=== PATIENT | female | born 1950 | race Caucasian/White ===

== ENCOUNTER 2018-03-25 08:43 | Outpatient (CLI) | payer MEDICARE, OTHER | END 2018-03-25 08:44 | disposition home or self-care (01) | LOC: BICMAMMO 08:43 | PROVIDERS: ATTEND Surgery | DX: Z08 Encounter for follow-up examination after completed treatment for malignant neoplasm (principal); Z85.3 Personal history of malignant neoplasm of breast | CPT/HCPCS: 77066; G0279 ==

== ENCOUNTER 2018-07-31 08:29 | Outpatient (CLI) | payer MEDICARE, OTHER ==
--- NOTE | 2018-07-31 10:31 | ULT ---
GALLBLADDER ULTRASOUND: History: Right upper quadrant pain, jaundice. FINDINGS: Real-time imaging of the right upper quadrant was performed. This shows a normal appearing gallbladde r. The technologist reports a negative ultrasound Hawley's sign. The common duct is 3 mm. The liver s hows increased echogenicity and is somewhat diffusely heterogeneous. It measures approximately 15 cm in length. The right kidney is normal in size and not obstructed. The pancreas is obscured. IMPRESSION: Heterogeneous appearance to the liver suggestive of some fatty change. POS: C
== END 2018-07-31 08:30 | disposition home or self-care (01) ==
LOC: ULT 08:29
PROVIDERS: ATTEND Surgery
DX: R10.11 Right upper quadrant pain (principal); R17 Unspecified jaundice
CPT/HCPCS: 76705

== ENCOUNTER 2018-08-14 15:11 | Outpatient (CLI) | payer MEDICARE, OTHER ==
--- NOTE | 2018-08-14 15:48 | BD ---
DEXA BONE DENSITY EXAM: HISTORY: A 68-year-old menopausal female for screening. COMPARISON: 03/24/2017. FINDINGS: Lumbar Spine: BMD (g/cm2) L1 0.854 T-Score: -1.2 L2 0.763 T-Score: -2.4 L3 0.842 T-Score: -2.2 L4 0.804 T-Score: -2.3 L1-L4 0.817 T-Score: -2.1 Femoral Neck: 0.657 T-Score: -1.7 Total Femur: 0.812 T-Score: -1.1 Impression: Osteopenia. This patient has a 10-year WHO fracture risk of a major osteoporotic fracture of 24% and of a hip fracture 4.4%. POS: CET
== END 2018-08-14 15:12 | disposition home or self-care (01) ==
LOC: BICMAMMO 15:11
PROVIDERS: ATTEND Internal Medicine Hematology & Oncology
DX: N95.9 Unspecified menopausal and perimenopausal disorder (principal); C50.512 Malignant neoplasm of lower-outer quadrant of left female breast; M85.80 Other specified disorders of bone density and structure, unspecified site
CPT/HCPCS: 77080

== ENCOUNTER 2018-08-17 12:25 | Outpatient (CLI) | payer MEDICARE, OTHER ==
--- NOTE | 2018-08-17 17:50 | NM ---
HEPATOBILIARY SCAN: Date: 08/17/18 HISTORY: Epigastric pain. RADIOPHARMACEUTICAL: 5.5 mCi technetium-99m mebrofenin injected intravenously. FINDINGS: There is good tracer extraction by the liver with prompt excretion into the biliary tract and small b owel loops, and normal filling of the gallbladder. The calculated gallbladder ejection fraction measures 30% following an oral fatty meal (normal greate r than 33%). IMPRESSION: Findings are consistent with gallbladder dyskinesia/chronic acalculous cholecystitis. POS: [facility]
== END 2018-08-17 12:26 | disposition home or self-care (01) ==
LOC: NM 12:25
PROVIDERS: ATTEND Internal Medicine Gastroenterology
DX: R10.13 Epigastric pain (principal); K76.0 Fatty (change of) liver, not elsewhere classified; E80.4 Gilbert syndrome
CPT/HCPCS: 78227; A9537

== ENCOUNTER 2018-08-21 08:39 | Outpatient (CLI) | payer MEDICARE, OTHER ==
[2018-08-21 09:19] LABS: Estimated GFR-MDRD - POC Greater than 90
--- NOTE | 2018-08-21 11:24 | CT ---
CONTRAST ENHANCED CT IMAGES ABDOMEN AND PELVIS: HISTORY: Abdominal pain, nausea, intermittent jaundice. FINDINGS: Contrast-enhanced CT images of the abdomen and pelvis obtained after administration of IV and oral co ntrast. The lung bases are unremarkable. There are surgical randi seen along the diaphragm. Ther e is a large sliding as well as paraesophageal hiatal hernia seen. The duodenum is unremarkable. The liver and spleen are unremarkable. The gallbladder is unremarkabl e. No evidence of adrenal masses or lesions seen. The liver and spleen are unremarkable. The collectin g systems are unremarkable. The small bowel is unremarkable. Some colonic thickening is seen in the descending colon, sigmoid colon, and rectum. This may represent changes of colitis. IMPRESSION: Hiatal, sliding, and paraesophageal hernias. POS: JOSH
[2018-08-21] MEDS ORDERED: Iopamidol 370 76% 100 ML VIAL ONE (12:30)
== END 2018-08-21 08:40 | disposition home or self-care (01) ==
LOC: CT 08:39
PROVIDERS: ATTEND Internal Medicine Hematology & Oncology
DX: R11.0 Nausea (principal); C50.512 Malignant neoplasm of lower-outer quadrant of left female breast; R10.9 Unspecified abdominal pain; R17 Unspecified jaundice; K44.9 Diaphragmatic hernia without obstruction or gangrene
CPT/HCPCS: 74177; 82565

== ENCOUNTER 2018-09-18 15:56 | Outpatient (CLI) | payer MEDICARE, OTHER ==
[2018-09-18 16:56] LABS: #Eosinphils 0.1 thou/uL (0.0-0.7); #Lymphocytes 1.7 thou/uL (1.20-3.40); #Monocytes 0.5 thou/uL (0.11-0.59); #Neutrophils 3.5 thou/uL (1.40-6.50); %Basophils 0.8 % (0.0-1.0); %Eosinophils 1.5 % (0.0-10.0); %Monocytes 8.3 % (0.0-10.0); %Neutrophils 60.3 % (42.0-75.0); Hemoglobin 15.7 g/dL (12.0-16.0); Mean Corpuscular HGB CONC 34.5 g/dL (32.0-36.0); Mean Corpuscular Hemoglobin 33.2 pg (27.0-31.0); Mean Corpuscular Volume 96.3 fL (78.0-98.0); Platelet Count 272 thou/uL (130-400); RBC Distribution Width 11.3 % (11.5-14.5); Red Blood Cell (RBC) Count 4.72 mill/uL (4.20-5.40); White Blood Cell (WBC) Count 5.7 thou/uL (4.8-10.8)
[2018-09-18 17:18] LABS: ALT (SGPT) 13 U/L (8-55); AST (SGOT) 13 U/L (5-34); Albumin 4.3 g/dL (3.4-4.8); Alkaline Phosphatase 76 U/L (40-150); Anion Gap 9 mmol/L (10-20); BUN (Urea Nitrogen) 10 mg/dL (9.8-20.1); Bilirubin, Total 2.3 mg/dL (0.2-1.2); Calc. Creatinine Clearance 0 mL/min (70-130); Calcium 9.2 mg/dL (7.8-10.44); Carbon Dioxide 28 mmol/L (23-31); Chloride 110 mmol/L (98-107); Estimated GFR-MDRD 72; Globulin 2.2 g/dL (2.4-3.5); Glucose 113 mg/dL (80-115); Potassium 3.6 mmol/L (3.5-5.1); Protein, Total 6.5 g/dL (6.0-8.3); Sodium 143 mmol/L (136-145)
== END 2018-09-18 15:57 | disposition home or self-care (01) ==
LOC: LABBT 15:56
PROVIDERS: ATTEND Surgery
DX: Z01.818 Encounter for other preprocedural examination (principal); K44.9 Diaphragmatic hernia without obstruction or gangrene
CPT/HCPCS: 80053; 85025; 93005; 93010

== ENCOUNTER 2018-09-21 07:11 | Inpatient (IN) | payer MEDICARE, OTHER ==
[2018-09-18 16:04] VITALS: BMI 24.1
[2018-09-21] MEDS ORDERED: CEFAZOLIN 2 GM/50 ML BAG ONE (07:48)
[2018-09-21] MEDS ORDERED: MEROPENEM 1 GM/50 ML 1 GM in Premix Bag 1 BAG IVPB SCH (08:30)
[2018-09-21] MEDS ORDERED: Bupivacaine/Epinephrine 0.25% 30 ML VIAL ONE ×2 (08:52)
[2018-09-21] MEDS ORDERED: Fentanyl 250 MCG/5 ML VIAL ONE (08:57)
[2018-09-21] MEDS ORDERED: Ondansetron PF 4 MG/2 ML Vial IVP PRN ×2 (10:46→11:31)
[2018-09-21] MEDS ORDERED: hydrALAZINE 20 MG/ML VIAL SLOW IVP PRN (10:46)
[2018-09-21] MEDS ORDERED: Hydrocodone-Acetamin 15 ML UDCUP PO PRN (10:46)
[2018-09-21] MEDS ORDERED: Promethazine HCl 25 MG/ML VIAL IM PRN ×3 (10:46→11:31)
[2018-09-21] MEDS ORDERED: Dextrose 5% in Water 1,000 ML IV PRN (10:46)
[2018-09-21] MEDS ORDERED: Dextrose 50% Abboject 50 ML SYRINGE SLOW IVP PRN (10:46)
[2018-09-21] MEDS ORDERED: diphenhydrAMINE 50 MG/ML VIAL IVP PRN (10:46)
[2018-09-21] MEDS ORDERED: Ondansetron HCl/PF 4 MG/2 ML Vial IVP PRN (10:50)
[2018-09-21] MEDS ORDERED: Promethazine HCl 25 MG/ML VIAL SLOW IVP PRN (10:50)
[2018-09-21] MEDS ORDERED: Fentanyl 100 MCG/2 ML VIAL ONE (11:14)
[2018-09-21] MEDS ORDERED: diphenhydrAMINE 50 MG/ML VIAL IM/IV PRN (11:31)
[2018-09-21] MEDS ORDERED: Naloxone HCl 0.4 mg/ml Vial IV PRN (11:31)
[2018-09-21] MEDS ORDERED: fentaNYL Citrate/PF 2,000 MCG in Sodium Chloride 0.9% 60 ML IV PRN (11:31)
[2018-09-21] MEDS ORDERED: Zolpidem Tartrate 5 MG TAB PO PRN (11:31)
[2018-09-21] MEDS ORDERED: diphenhydrAMINE 25 MG CAP PO PRN (11:31)
[2018-09-21] MEDS ORDERED: Promethazine HCl 25 MG/ML VIAL ONE (11:59)
[2018-09-21] MEDS ORDERED: Ketorolac Tromethamine 30 MG/ML VIAL IVP SCH (12:00)
--- NOTE | 2018-09-21 12:32 | OP ---
DATE OF PROCEDURE: 09/21/2018 PREOPERATIVE DIAGNOSIS: Recurrent paraesophageal hernia. PROCEDURE PERFORMED: Laparoscopic repair of paraesophageal hernia with intraoperative esophagogastroscopy. INDICATION FOR PROCEDURE: The patient is a 68-year-old female, who had a Aleks fundoplication several years ago and started having severe left upper quadrant abdominal pain. She went to had an endoscopy that showed a recurrent paraesophageal hernia. FINDINGS: Paraesophageal hernia, left side of the crura. DESCRIPTION OF PROCEDURE: After informed consent was obtained, the patient was taken to the operating room, given general endotracheal anesthesia, placed in the supine position. Abdomen was prepped and draped in usual fashion. Local anesthesia infiltrated subcutaneously and deep. A 5 mm incision was performed approximately 8 inches above the xiphoid slightly to the left. Veress needle was inserted. Drop test was performed. Pneumoperitoneum was created to a volume of 2 L of carbon dioxide. Utilizing a bladeless 5 mm trocar and 0-degree laparoscope, direct visual entry in the abdominal cavity was performed. Pneumoperitoneum was created to a pressure of 15 mmHg. The patient was placed in reverse Trendelenburg position and Massimo liver retractor inserted. The left lobe of the liver retracted superiorly. A 5 mm port was placed just to the left of the falciform, 8 mm port placed left subcostal, and another 5 mm port was placed inferior to the left. Retraction was achieved and a very careful dissection of the crura was performed circumferentially. I was able to make a sub-esophageal window and a Stirling drain was placed to aid in retraction. The wrap was intact. The wrap was herniated through the diaphragm and there was also some paraesophageal component on the left side. The wrap was dissected out including about 4 cm of esophagus. An attempt was made at passing a 40-Armenian bougie, but it met resistance, so rather than force it onto putting the EGD scope down into the stomach. Then, did a posterior crural plication utilizing a 2-0 Ethibond tied intracorporeally posteriorly. Then, the fundus was pexied to the abdominal wall with a 2-0 silk suture to maintain reduction of the hernia. Then, intraoperative endoscopy again performed scope basically turned back on. The stomach was insufflated with air. Under water, there was no air leak. The repair was checked. There was no paraesophageal component or torsion. The pylorus was patent. The stomach decompressed, the scope removed. Hemostasis assured. Trocars and retractors were removed. The skin closed with interrupted 4-0 Rapide. Dermabond applied. The patient tolerated the procedure well, transferred to Recovery in good condition. Sponge and needle count verified correct x2. Job ID: [id number]
[2018-09-21] MEDS: D5 1/2 NS w/20 mEq KCL 1,000 ML IV SCH ×3 (13:07→20:54)
[2018-09-21] MEDS: Acetaminophen 1,000 MG in Premix Bag 1 BAG IVPB SCH ×3 (13:09→23:17)
[2018-09-21] MEDS ORDERED: PROPOFOL 200 MG/20 ML VIAL ONE (20:51)
[2018-09-21] MEDS ORDERED: ePHEDrine/0.9% NaCl/PF SYRINGE 50 mg/10 ml ONE (20:51)
[2018-09-21] MEDS ORDERED: Ondansetron PF 4 MG/2 ML Vial ONE (20:51)
[2018-09-21] MEDS ORDERED: Ketorolac Tromethamine 30 MG/ML VIAL ONE (20:51)
[2018-09-21] MEDS ORDERED: PHENYLEPHRINE-NS 100 MCG/ML 10 ML SYRINGE ONE (20:51)
[2018-09-21] MEDS ORDERED: Lidocaine 1% PF 5 ML VIAL ONE (20:51)
[2018-09-21] MEDS ORDERED: Glycopyrrolate 0.2 MG/ML 5 ML SYRINGE ONE (20:51)
[2018-09-22] MEDS: Acetaminophen 1,000 MG in Premix Bag 1 BAG IVPB SCH (06:20)
[2018-09-22 07:59] LABS: #Lymphocytes 1.7 thou/uL (1.20-3.40); #Monocytes 0.7 thou/uL (0.11-0.59); #Neutrophils 7.1 thou/uL (1.40-6.50); %Basophils 0.3 % (0.0-1.0); %Eosinophils 0.4 % (0.0-10.0); %Lymphocytes 17.9 % (21.0-51.0); %Monocytes 7.4 % (0.0-10.0); Hemoglobin 13.8 g/dL (12.0-16.0); Mean Corpuscular HGB CONC 33.2 g/dL (32.0-36.0); Mean Corpuscular Hemoglobin 32.1 pg (27.0-31.0); Mean Corpuscular Volume 96.8 fL (78.0-98.0); Platelet Count 227 thou/uL (130-400); RBC Distribution Width 11.3 % (11.5-14.5); White Blood Cell (WBC) Count 9.6 thou/uL (4.8-10.8)
[2018-09-22 08:57] LABS: Anion Gap 13 mmol/L (10-20); BUN (Urea Nitrogen) 5 mg/dL (9.8-20.1); Calc. Creatinine Clearance 80 mL/min (70-130); Calcium 8.3 mg/dL (7.8-10.44); Carbon Dioxide 19 mmol/L (23-31); Chloride 112 mmol/L (98-107); Estimated GFR-MDRD Greater than 90; Glucose 105 mg/dL (80-115); Potassium 3.8 mmol/L (3.5-5.1); Sodium 140 mmol/L (136-145)
[2018-09-22] MEDS ORDERED: Enoxaparin Sodium 40 MG/0.4 ML SYRINGE SC SCH (09:00)
[2018-09-22] MEDS ORDERED: Pantoprazole 40 MG VIAL IVP SCH (09:00)
--- NOTE | 2018-09-22 09:04 | RAD ---
LIMITED UPPER GI WITH SINGLE SIP 15 ML ORAL GASTROGRAFIN: HISTORY: Recent paraesophageal hernia surgery. FINDINGS: There is unobstructed passage of contrast from the esophagus into the stomach. Tertiary contractions are present. No contrast extravasation is seen. A moderate-sized sliding hiatal hernia is noted. IMPRESSION: No evidence of obstruction or leak. POS: LJ
[2018-09-22] MEDS: D5 1/2 NS w/20 mEq KCL 1,000 ML IV SCH (11:20)
[2018-09-22 13:02] VITALS: BP 126/77; TEMP 98.8
--- NOTE | 2018-09-22 14:39 | DIS ---
DATE OF ADMISSION: 09/21/2018 DATE OF DISCHARGE: 09/22/2018 DISCHARGE DIAGNOSIS: Recurrent paraesophageal hernia. SURGEON: Dr. Edmond. PROCEDURE PERFORMED: Laparoscopic paraesophageal hernia repair with mesh, recurrent. HOSPITAL COURSE: The patient was admitted, taken to the operating room, where she underwent a laparoscopic repair of recurrent paraesophageal hernia. Postoperatively, she has done well. Gastrografin swallow initially they called it recurrent sliding hiatal hernia, but on further review, it looks as though it is just that the wrap has some air and contrast in it. She is tolerating liquids well. Her pain controlled on p.o. medications. She is discharged home on a liquid diet. She will follow up with me in 2 weeks. Job ID: [id number]
== END 2018-09-22 16:58 | disposition home or self-care (01) | DRG 328 ==
LOC: SDC 07:11 → SURG A 10:46
PROVIDERS: ADMIT Surgery; ATTEND Surgery
PROC: 0BUT4JZ Supplement Diaphragm with Synthetic Substitute, Percutaneous Endoscopic Approach (ICD-10-PCS; principal; 2018-09-21)
PROC: 0DJ68ZZ Inspection of Stomach, Via Natural or Artificial Opening Endoscopic (ICD-10-PCS; 2018-09-21)
DX: K44.9 Diaphragmatic hernia without obstruction or gangrene (principal); M79.7 Fibromyalgia; K21.9 Gastro-esophageal reflux disease without esophagitis; Z88.1 Allergy status to other antibiotic agents; Z88.2 Allergy status to sulfonamides
CPT/HCPCS: 36415; 74241; 80048; 80053; 85025; 93005; 93010; 94760; C9113; J0131; J1650; J1885; J2001; J2185; J2405; J2550; J2704; J3010; J7050

== ENCOUNTER 2019-03-31 09:18 | Outpatient (CLI) | payer MEDICARE, OTHER ==
--- NOTE | 2019-03-31 10:11 | MMO ---
Bilateral MAMMO Bilat Diag [facility]. CLINICAL HISTORY: Patient is 69 years old and is seen for diagnostic exam. The patient has the following family history of breast cancer: 4 cousin females. The patient has a history of Lumpectomy procedure revealed invasive ductal left breast carcinoma in May, and Ultrasound Guided Core Biopsy procedure revealed invasive ductal left breast carcinoma in April,. The patient has a history of right Excisional Biopsy in 1992 - benign and bilateral Breast reduction in 1993. VIEWS: The views performed were: bilateral craniocaudal with tomosynthesis; bilateral mediolateral oblique with tomosynthesis; and bilateral mediolateral with tomosynthesis. FILMS COMPARED: The present examination has been compared to prior imaging studies performed at 04/09/2017 and 03/25/2018. MAMMOGRAM FINDINGS: The breasts are heterogeneously dense, which could obscure a lesion on mammography. Finding 1: There are stable benign appearing calcifications seen in both breasts. Finding 2: There is a stable post-surgical scar seen in the left breast. There are no suspicious masses, suspicious calcifications, or new areas of architectural distortion. IMPRESSION: THERE IS NO MAMMOGRAPHIC EVIDENCE OF MALIGNANCY. A ROUTINE FOLLOW-UP MAMMOGRAM IN 1 YEAR IS RECOMMENDED. THE RESULTS OF THIS EXAM WERE SENT TO THE PATIENT. ACR BI-RADS Category 2 - Benign finding MAMMOGRAPHY NOTE: 1. A negative mammogram report should not delay a biopsy if a dominant of clinically suspicious mass is present. 2. Approximately 10% to 15% of breast cancers are not detected by mammography. 3. Adenosis and dense breasts may obscure an underlying neoplasm.
== END 2019-03-31 09:19 | disposition home or self-care (01) ==
LOC: BICMAMMO 09:18
PROVIDERS: ATTEND Internal Medicine Hematology & Oncology
DX: C50.912 Malignant neoplasm of unspecified site of left female breast (principal); Z80.3 Family history of malignant neoplasm of breast
CPT/HCPCS: 77066; G0279

== ENCOUNTER 2019-09-23 15:19 | Outpatient (CLI) | payer MEDICARE, OTHER ==
--- NOTE | 2019-09-23 16:02 | BD ---
Exam: DEXA Bone Density 09/23/19 HISTORY: Postmenopausal screening for osteoporosis. Lumbar Spine: BMD (g/cm2) T-SCORE Z-SCORE L1 0.811 -1.6 0.2 L2 0.795 -2.1 -0.1 L3 0.862 -2.0 0.1 L4 0.827 -2.1 0.1 L1-L4 0.825 -2.0 0.1 Femoral Neck: 0.648 -1.8 0.0 Total Femur: 0.889 -0.4 1.1 There has been interval improvement of 0.9% in the BMD of the lumbar spine and improvement of 9.5% in the BMD o the proximal femur since 08/14/18. Impression: Osteopenia. POS: JOSH
== END 2019-09-23 15:20 | disposition home or self-care (01) ==
LOC: BICMAMMO 15:19
PROVIDERS: ATTEND Internal Medicine Hematology & Oncology
DX: Z13.820 Encounter for screening for osteoporosis (principal); T38.6X5A Adverse effect of antigonadotrophins, antiestrogens, antiandrogens, not elsewhere classified, initial encounter; C50.919 Malignant neoplasm of unspecified site of unspecified female breast; M85.80 Other specified disorders of bone density and structure, unspecified site
CPT/HCPCS: 77080

== ENCOUNTER 2020-04-05 10:26 | Outpatient (CLI) | payer MEDICARE, OTHER ==
--- NOTE | 2020-04-05 10:46 | MMO ---
Bilateral MAMMO Bilat Diag [facility]DI[facility]. CLINICAL HISTORY: Patient is 70 years old and is seen for diagnostic exam. The patient has the following family history of breast cancer: 4 cousin females. The patient has a history of lumpectomy procedure revealed invasive ductal left breast carcinoma in May,; Ultrasound guided core biopsy procedure revealed invasive ductal left breast carcinoma in April, and malignant (generic) in the left breast 2016. The patient has a history of right Excisional Biopsy in 1992 - benign and bilateral Breast reduction in 1993. VIEWS: The views performed were: bilateral craniocaudal with tomosynthesis; bilateral mediolateral oblique with tomosynthesis; and bilateral mediolateral with tomosynthesis. FILMS COMPARED: The present examination has been compared to prior imaging studies performed at [facility] on 03/24/2017, 04/09/2017, 03/25/2018 and 03/31/2019. This study has been interpreted with the assistance of computer-aided detection. MAMMOGRAM FINDINGS: The breasts are heterogeneously dense, which could obscure a lesion on mammography. Finding 1: There are stable benign appearing calcifications seen in both breasts. Finding 2: There is a stable post-surgical scar seen in the left breast. There are no suspicious masses, suspicious calcifications, or new areas of architectural distortion. IMPRESSION: THERE IS NO MAMMOGRAPHIC EVIDENCE OF MALIGNANCY. A ROUTINE FOLLOW-UP MAMMOGRAM IN 1 YEAR IS RECOMMENDED. THE RESULTS OF THIS EXAM WERE SENT TO THE PATIENT. ACR BI-RADS Category 2 - Benign finding MAMMOGRAPHY NOTE: 1. A negative mammogram report should not delay a biopsy if a dominant of clinically suspicious mass is present. 2. Approximately 10% to 15% of breast cancers are not detected by mammography. 3. Adenosis and dense breasts may obscure an underlying neoplasm. Reported by: MARTIN MEADOWS MD Electonically Signed: [id number]
== END 2020-04-05 10:27 | disposition home or self-care (01) ==
LOC: BICMAMMO 10:26
PROVIDERS: ATTEND Internal Medicine Hematology & Oncology
DX: Z08 Encounter for follow-up examination after completed treatment for malignant neoplasm (principal); Z85.3 Personal history of malignant neoplasm of breast
CPT/HCPCS: 77066; G0279

== ENCOUNTER 2020-09-25 09:15 | Outpatient (CLI) | payer MEDICARE, OTHER ==
--- NOTE | 2020-09-25 10:03 | BD ---
DEXA bone density exam: 09/25/2020 HISTORY: Postmenopausal female undergoing screening for osteoporosis. FINDINGS: Lumbar Spine BMD (g/cm2) L1 0.835 T-Score -1.4 (previous -1.6) L2 0.724 T-Score -2.8 (previous -2.1) L3 0.836 T-Score -2.3 (previous -2.0) L4 0.775 T-Score -2.6 (previous -2.1) L1-L4 0.795 T-Score -2.3 (previous -2.0) Femoral Neck 0.637 T-Score -1.9 (previous -1.8) Total Femur 0.810 T-Score -1.1 (previous -0.4) FRAX-WHO fracture risk assessment tool was not reported as the patient is being treated for osteoporo sis. When compared to the prior exam, bone mineral density within the total proximal femur has decreased b y 8.9% and the total lumbar spine has decreased by 3.6%. IMPRESSION: Osteopenia. Bone mineral density has decreased when compared to the prior exam. Transcribed Date/Time: 09/25/2020 10:44 AM
== END 2020-09-25 09:16 | disposition home or self-care (01) ==
LOC: BICMAMMO 09:15
PROVIDERS: ATTEND Internal Medicine Hematology & Oncology
DX: Z13.820 Encounter for screening for osteoporosis (principal); M85.89 Other specified disorders of bone density and structure, multiple sites; Z78.0 Asymptomatic menopausal state
CPT/HCPCS: 77080

== ENCOUNTER 2021-04-06 08:26 | Outpatient (CLI) | payer MEDICARE, OTHER | END 2021-04-06 08:27 | disposition home or self-care (01) | LOC: BICMAMMO 08:26 | PROVIDERS: ATTEND Internal Medicine Hematology & Oncology | DX: Z08 Encounter for follow-up examination after completed treatment for malignant neoplasm (principal); Z85.3 Personal history of malignant neoplasm of breast | CPT/HCPCS: 77066; G0279 ==

== ENCOUNTER 2021-09-25 10:17 | Outpatient (CLI) | payer MEDICARE, OTHER | END 2021-09-25 10:18 | disposition home or self-care (01) | LOC: BICMAMMO 10:17 | PROVIDERS: ATTEND Internal Medicine Hematology & Oncology | DX: Z13.820 Encounter for screening for osteoporosis (principal); C50.512 Malignant neoplasm of lower-outer quadrant of left female breast; M85.89 Other specified disorders of bone density and structure, multiple sites; T38.6X5A Adverse effect of antigonadotrophins, antiestrogens, antiandrogens, not elsewhere classified, initial encounter | CPT/HCPCS: 77080 ==

== ENCOUNTER 2022-01-03 17:01 | Inpatient (IN) | payer MEDICARE, OTHER ==
[2022-01-03 19:00] VITALS: BMI 23.4
[2022-01-03] MEDS ORDERED: Ondansetron ODT 4 MG TAB PO PRN (23:41)
[2022-01-03] MEDS ORDERED: Acetaminophen 650 MG Suppository PR PRN (23:41)
[2022-01-03] MEDS ORDERED: Ondansetron PF 4 MG/2 ML Vial IVP PRN (23:41)
[2022-01-04] MEDS ORDERED: SUMAtriptan Succinate 50 MG TAB PO PRN (03:49)
[2022-01-04 04:58] LABS: #Eosinphils 0.2 thou/uL (0.0-0.7); #Lymphocytes 2.6 thou/uL (1.20-3.40); #Monocytes 0.5 thou/uL (0.11-0.59); #Neutrophils 2.6 thou/uL (1.40-6.50); %Basophils 0.4 % (0.0-1.0); %Eosinophils 2.8 % (0.0-10.0); %Monocytes 8.1 % (0.0-10.0); %Neutrophils 44.7 % (42.0-75.0); Hemoglobin 14.7 g/dL (12.0-16.0); Mean Corpuscular HGB CONC 32.7 g/dL (32.0-36.0); Mean Corpuscular Hemoglobin 32.2 pg (27.0-31.0); Mean Corpuscular Volume 98.5 fL (78.0-98.0); Mean Platelet Volume 7.7 fL (7.4-10.4); Platelet Count 238 thou/uL (130-400); RBC Distribution Width 11.4 % (11.5-14.5); Red Blood Cell (RBC) Count 4.57 mill/uL (4.20-5.40); White Blood Cell (WBC) Count 5.9 thou/uL (4.8-10.8)
[2022-01-04 05:20] LABS: Anion Gap 10 mmol/L (10-20); BUN (Urea Nitrogen) 10 mg/dL (9.8-20.1); Calc. Creatinine Clearance 70 mL/min (70-130); Calcium 7.8 mg/dL (7.8-10.44); Carbon Dioxide 21 mmol/L (23-31); Cardiac Risk 2.2 (Less than 4.5); Chloride 112 mmol/L (98-107); Cholesterol 111 mg/dl (< 200 Desired); Glucose 98 mg/dL (83-110); HDL Cholesterol 51 mg/dL (>60 Neg Risk); LDL Cholesterol, Calculated 45 mg/dL; Potassium 3.7 mmol/L (3.5-5.1); Sodium 139 mmol/L (136-145); Triglycerides 75 mg/dL (Less than 150)
[2022-01-04] MEDS: Aspirin 81 mg Enteric Coated Tablet PO SCH (08:43)
[2022-01-04] MEDS: Acetaminophen 325 MG TAB PO PRN (08:45)
[2022-01-05] MEDS: Aspirin 81 mg Enteric Coated Tablet PO SCH (09:03)
[2022-01-05] MEDS: Acetaminophen 325 MG TAB PO PRN (09:03)
[2022-01-05 09:50] LABS: Hemoglobin A1c 5.7 % (4.0-6.0)
[2022-01-05 10:00] LABS: Anion Gap 13 mmol/L (10-20); BUN (Urea Nitrogen) 11 mg/dL (9.8-20.1); Calc. Creatinine Clearance 69 mL/min (70-130); Calcium 8.4 mg/dL (7.8-10.44); Carbon Dioxide 19 mmol/L (23-31); Chloride 110 mmol/L (98-107); Glucose 126 mg/dL (83-110); Potassium 3.7 mmol/L (3.5-5.1); Sodium 138 mmol/L (136-145)
[2022-01-05 10:29] LABS: Thyroid Stimulating Hormone 1.6997 uIU/mL (0.35-4.94)
[2022-01-05] MEDS ORDERED: Atorvastatin Calcium 20 MG TAB PO SCH (21:00)
[2022-01-06 05:41] LABS: #Eosinphils 0.2 thou/uL (0.0-0.7); #Lymphocytes 2.4 thou/uL (1.20-3.40); #Monocytes 0.5 thou/uL (0.11-0.59); #Neutrophils 3.8 thou/uL (1.40-6.50); %Basophils 0.6 % (0.0-1.0); %Eosinophils 2.5 % (0.0-10.0); %Lymphocytes 34.7 % (21.0-51.0); %Monocytes 7.7 % (0.0-10.0); %Neutrophils 54.5 % (42.0-75.0); Hemoglobin 14.6 g/dL (12.0-16.0); Mean Corpuscular Hemoglobin 32.4 pg (27.0-31.0); Mean Corpuscular Volume 98.2 fL (78.0-98.0); Mean Platelet Volume 7.8 fL (7.4-10.4); Platelet Count 234 thou/uL (130-400); RBC Distribution Width 11.4 % (11.5-14.5); Red Blood Cell (RBC) Count 4.52 mill/uL (4.20-5.40)
[2022-01-06 05:58] LABS: Anion Gap 13 mmol/L (10-20); BUN (Urea Nitrogen) 12 mg/dL (9.8-20.1); Calc. Creatinine Clearance 72 mL/min (70-130); Calcium 8.4 mg/dL (7.8-10.44); Carbon Dioxide 20 mmol/L (23-31); Chloride 111 mmol/L (98-107); Glucose 105 mg/dL (83-110); Potassium 3.6 mmol/L (3.5-5.1); Sodium 140 mmol/L (136-145)
[2022-01-06] MEDS: Aspirin 81 mg Enteric Coated Tablet PO SCH (08:33)
[2022-01-06] MEDS ORDERED: Cyanocobalamin (Vitamin B-12) 1,000 MCG TAB PO SCH (09:00)
[2022-01-06] MEDS ORDERED: FLU VACC QS2021-22(65YR UP)/PF 240 MCG/0.7 ML SYRINGE IM ONE (09:00)
[2022-01-06 12:58] VITALS: BP 127/80; TEMP 98.3
== END 2022-01-06 13:42 | disposition home or self-care (01) | DRG 69 ==
LOC: NEURO 17:01 → OBSVTOIN 01-04 15:56
PROVIDERS: ADMIT Internal Medicine; ATTEND Family Medicine
DX: G45.9 Transient cerebral ischemic attack, unspecified (principal); J32.9 Chronic sinusitis, unspecified; G43.909 Migraine, unspecified, not intractable, without status migrainosus; G62.9 Polyneuropathy, unspecified; E55.9 Vitamin D deficiency, unspecified; M79.7 Fibromyalgia; Z28.21 Immunization not carried out because of patient refusal; Z86.73 Personal history of transient ischemic attack (TIA), and cerebral infarction without residual deficits; Z85.3 Personal history of malignant neoplasm of breast; Z91.041 Radiographic dye allergy status; Z88.5 Allergy status to narcotic agent; Z91.018 Allergy to other foods; Z91.013 Allergy to seafood; Z88.2 Allergy status to sulfonamides; Z88.8 Allergy status to other drugs, medicaments and biological substances; Z79.899 Other long term (current) drug therapy; Z79.51 Long term (current) use of inhaled steroids; Z98.890 Other specified postprocedural states; Z79.811 Long term (current) use of aromatase inhibitors
CPT/HCPCS: 36415; 70551; 80048; 80061; 82607; 82746; 83036; 84443; 85025; 93306; 93880; 95712; 95819; 95957; G0378

== ENCOUNTER 2022-01-30 16:30 | Outpatient (CLI) | payer MEDICARE, OTHER | END 2022-01-30 16:31 | disposition home or self-care (01) | LOC: SLEEPLAB 16:30 | PROVIDERS: ATTEND Specialist | DX: G47.33 Obstructive sleep apnea (adult) (pediatric) (principal) | CPT/HCPCS: 95800 ==

== ENCOUNTER 2022-04-10 09:51 | Outpatient (CLI) | payer MEDICARE, OTHER | END 2022-04-10 09:52 | disposition home or self-care (01) | LOC: BICMAMMO 09:51 | PROVIDERS: ATTEND Internal Medicine Hematology & Oncology | DX: C50.512 Malignant neoplasm of lower-outer quadrant of left female breast (principal); Z80.3 Family history of malignant neoplasm of breast; Z98.890 Other specified postprocedural states | CPT/HCPCS: 77066; G0279 ==

== ENCOUNTER 2022-10-01 10:47 | Outpatient (CLI) | payer MEDICARE | END 2022-10-01 10:48 | disposition home or self-care (01) | LOC: BICMAMMO 10:47 | PROVIDERS: ATTEND Internal Medicine Hematology & Oncology | DX: M85.89 Other specified disorders of bone density and structure, multiple sites (principal) | CPT/HCPCS: 77080 ==

== ENCOUNTER 2023-06-02 13:20 | Outpatient (CLI) | payer MEDICARE, OTHER | END 2023-06-02 13:21 | disposition home or self-care (01) | LOC: BICMAMMO 13:20 | PROVIDERS: ATTEND Internal Medicine Hematology & Oncology | DX: Z08 Encounter for follow-up examination after completed treatment for malignant neoplasm (principal); Z85.3 Personal history of malignant neoplasm of breast | CPT/HCPCS: 77066; G0279 ==

== ENCOUNTER 2023-11-06 10:30 | Outpatient (CLI) | payer MEDICARE, OTHER | END 2023-11-06 10:31 | disposition home or self-care (01) | LOC: BICMAMMO 10:30 | PROVIDERS: ATTEND Internal Medicine Hematology & Oncology | DX: Z13.820 Encounter for screening for osteoporosis (principal); C50.512 Malignant neoplasm of lower-outer quadrant of left female breast; M85.89 Other specified disorders of bone density and structure, multiple sites | CPT/HCPCS: 77080 ==

== ENCOUNTER 2023-11-06 12:47 | Outpatient (CLI) | payer MEDICARE, OTHER | END 2023-11-06 12:48 | disposition home or self-care (01) | LOC: RAD 12:47 | PROVIDERS: ATTEND Internal Medicine Critical Care Medicine | DX: R06.00 Dyspnea, unspecified (principal); K44.9 Diaphragmatic hernia without obstruction or gangrene | CPT/HCPCS: 71046 ==

== ENCOUNTER 2024-02-02 10:00 | Inpatient (IN) | payer MEDICARE, OTHER ==
[2024-02-02 11:20] VITALS: BMI 22.8
[2024-02-11] MEDS ORDERED: Meropenem 1 GM in Sodium Chloride 0.9% 100 ML IVPB SCH (10:00)
[2024-02-11] MEDS ORDERED: EPINEPHrine 1 MG/ML VIAL ONE (12:47)
[2024-02-11] MEDS ORDERED: Bupivacaine 0.25% HCL 30 ML VIAL ONE (12:48)
[2024-02-11] MEDS ORDERED: PROPOFOL 20 ML ONE (13:04)
[2024-02-11] MEDS ORDERED: fentaNYL PF 100 MCG/2 ML SYRINGE ONE ×3 (13:04→15:37)
[2024-02-11] MEDS ORDERED: Rocuronium Bromide 10 MG/ML (10ML VIAL) ONE (13:05)
[2024-02-11] MEDS ORDERED: Lidocaine 1% PF 5 ML VIAL ONE (13:05)
[2024-02-11] MEDS ORDERED: Dexamethasone 20 MG/5 ML VIAL ONE (13:32)
[2024-02-11] MEDS ORDERED: Ondansetron PF 4 MG/2 ML Vial ONE (13:32)
[2024-02-11] MEDS ORDERED: PHENYLEPHRINE-NS 100 MCG/ML 10 ML SYRINGE ONE (14:04)
[2024-02-11] MEDS ORDERED: SUGAMMADEX SODIUM 200 MG/2 ML VIAL ONE (15:02)
[2024-02-11] MEDS ORDERED: MINERAL OIL/WHITE PETROLATUM 3.5 GM TUBE ONE (15:07)
[2024-02-11] MEDS ORDERED: Dextrose 5% in Water 1,000 ML IV PRN (15:09)
[2024-02-11] MEDS ORDERED: Dextrose 50% Abboject 50 ML SYRINGE SLOW IVP PRN (15:09)
[2024-02-11] MEDS ORDERED: Ondansetron PF 4 MG/2 ML Vial IVP PRN (15:09)
[2024-02-11] MEDS ORDERED: hydrALAZINE 20 MG/ML VIAL SLOW IVP PRN (15:09)
[2024-02-11] MEDS ORDERED: Glucagon 1 MG/ML KIT IM PRN (15:09)
[2024-02-11] MEDS ORDERED: Promethazine HCl 25 MG/ML VIAL IM PRN ×2 (15:09→15:30)
[2024-02-11] MEDS ORDERED: Ipratropium/Albuterol 3 ML NEB NEB PRN (15:09)
[2024-02-11] MEDS ORDERED: diphenhydrAMINE 50 MG/ML VIAL IVP PRN ×2 (15:09→15:30)
[2024-02-11] MEDS ORDERED: Naloxone HCl 0.4 mg/ml Vial IV PRN (15:30)
[2024-02-11] MEDS ORDERED: diphenhydrAMINE 50 MG/ML VIAL IM PRN (15:30)
[2024-02-11] MEDS ORDERED: ACTIVE PCA FS PRN (15:30)
[2024-02-11] MEDS ORDERED: diphenhydrAMINE 25 MG CAP PO PRN (15:30)
[2024-02-11] MEDS ORDERED: FENTANYL 500 MCG/10 ML VIAL 2,000 MCG in Sodium Chloride 0.9% 60 ML IV PRN (15:30)
[2024-02-11] MEDS: Ondansetron PF 4 MG/2 ML Vial IVP PRN (19:59)
[2024-02-11] MEDS: D5 1/2 NS w/20 mEq KCL 1,000 ML IV SCH (19:59)
[2024-02-12 05:50] LABS: #Basophils Less than 0.03 10x3/uL (0.0-0.2); #Eosinphils Less than 0.03 10x3/uL (0.0-0.7); %Basophils 0.1 % (0.0-1.0); %Lymphocytes 7.1 % (21.0-51.0); %Neutrophils 86.3 % (42.0-75.0); Hematocrit 43.8 % (36.0-47.0); Mean Corpuscular HGB CONC 34.2 g/dL (32.0-36.0); Mean Corpuscular Hemoglobin 32.1 pg (27.0-31.0); Mean Corpuscular Volume 93.8 fL (78.0-98.0); Mean Platelet Volume 10.3 fL (7.4-10.4); Platelet Count 247 10x3/uL (130-400); RBC Distribution Width 12.1 % (11.5-14.5); Red Blood Cell (RBC) Count 4.67 mill/uL (4.20-5.40)
[2024-02-12 06:21] LABS: Anion Gap 15 mmol/L (10-20); BUN (Urea Nitrogen) 13 mg/dL (9.8-20.1); Calc. Creatinine Clearance 57 mL/min (70-130); Calcium 8.4 mg/dL (7.8-10.44); Carbon Dioxide 22 mmol/L (23-31); Chloride 106 mmol/L (98-107); Estimated GFR 81; Glucose 190 mg/dL (83-110); Potassium 3.7 mmol/L (3.5-5.1); Sodium 139 mmol/L (136-145)
[2024-02-12] MEDS: Enoxaparin 40 MG (0.4 mL) SYRINGE SC SCH (10:52)
[2024-02-12] MEDS: Pantoprazole 40 MG VIAL IVP SCH (10:58)
[2024-02-13] MEDS ORDERED: DC PCA Order Set 1 EACH FS PRN (08:57)
[2024-02-13] MEDS: Hydrocodone-Acetamin 15 ML UDCUP PO PRN (10:40)
[2024-02-13 15:29] VITALS: BP 109/70; TEMP 98.3
== END 2024-02-13 16:30 | disposition home or self-care (01) | DRG 328 ==
LOC: EDSTATUS 02-06 10:00 → SURG A 02-11 08:34 → SJJU 02-11 19:10
PROVIDERS: ADMIT Surgery; ATTEND Surgery
PROC: 0BUT4JZ Supplement Diaphragm with Synthetic Substitute, Percutaneous Endoscopic Approach (ICD-10-PCS; principal; 2024-02-11)
PROC: 8E0W4CZ Robotic Assisted Procedure of Trunk Region, Percutaneous Endoscopic Approach (ICD-10-PCS; 2024-02-11)
PROC: 0DJ68ZZ Inspection of Stomach, Via Natural or Artificial Opening Endoscopic (ICD-10-PCS; 2024-02-11)
PROC: 3E033XZ Introduction of Vasopressor into Peripheral Vein, Percutaneous Approach (ICD-10-PCS; 2024-02-11)
DX: K44.9 Diaphragmatic hernia without obstruction or gangrene (principal); Z79.82 Long term (current) use of aspirin; Z79.899 Other long term (current) drug therapy; I10 Essential (primary) hypertension; M19.90 Unspecified osteoarthritis, unspecified site; Z90.710 Acquired absence of both cervix and uterus; Z98.890 Other specified postprocedural states; Z88.8 Allergy status to other drugs, medicaments and biological substances; Z88.2 Allergy status to sulfonamides; Z88.1 Allergy status to other antibiotic agents
CPT/HCPCS: 36415; 80048; 85025; 93005; 93010; C1781; C9113; J0171; J0665; J1100; J1650; J2405; J2704; J3480

== ENCOUNTER 2025-04-05 10:15 | Outpatient (CLI) | payer MEDICARE, OTHER ==
[2025-04-06 10:09] LABS: Estimated GFR - POC 77.0
== END 2025-04-05 10:16 | disposition home or self-care (01) ==
LOC: SCSMRI 10:15
PROVIDERS: ATTEND Orthopaedic Surgery Hand Surgery
DX: E34.8 Other specified endocrine disorders (principal); R90.82 White matter disease, unspecified
CPT/HCPCS: 36415; 70553; 76376; 82565

== ENCOUNTER 2025-06-07 12:42 | Outpatient (CLI) | payer MEDICARE, OTHER | END 2025-06-07 12:43 | disposition home or self-care (01) | LOC: BICMAMMO 12:42 | PROVIDERS: ATTEND Internal Medicine Hematology & Oncology | DX: Z12.31 Encounter for screening mammogram for malignant neoplasm of breast (principal); Z80.3 Family history of malignant neoplasm of breast; Z85.3 Personal history of malignant neoplasm of breast; Z91.89 Other specified personal risk factors, not elsewhere classified; Z98.890 Other specified postprocedural states | CPT/HCPCS: 77063; 77067 ==